=== PATIENT | male | born 1975 | race Caucasian/White ===

== ENCOUNTER → 2017-05-25 | Outpatient (CLI) | payer MEDICAID ==
[~2017-05-25] MED LIST: BACTROBAN2% TP; DIFLUCAN 100MG100 MG PO; KEFLEX 500MG.500 MG PO; KEFLEX500 M1 PO; PANTOPRAZOLE SO20 MG PO; PREDNISONE 20MG20 MG PO; PREDNISONE20 MG PO; TESSALON PERLE100 M1 PO; TESSALON PERLE100 MG PO; TYLENOL WITH CO1 TA1 PO; ZITHROMAX Z-PA250 M2 PO
== END ==
LOC: RT 13:39
DX: R06.02 Shortness of breath (principal)